=== PATIENT | female | born 1975 | race Two or more races ===

== ENCOUNTER 2018-10-30 13:02 | Emergency (ER) | payer MEDICAID ==
[~2018-10-30] VITALS: Ht 152.4 cm; Wt 67.1 kg
[2018-10-30 13:02] VITALS: BP 114/59
--- NOTE | 2018-10-30 13:47 | NUR ---
Rx provided. Patient discharged to home in stable condition. Written and verbal after care instructions given. Patient verbalizes understanding of instruction.
== END 2018-10-30 13:48 | disposition home or self-care (01) ==
LOC: ER 13:04
DX: J40 Bronchitis, not specified as acute or chronic (principal)